=== PATIENT | female | born 1950 | race Caucasian/White ===

== ENCOUNTER 2020-02-13 14:16 | Emergency (ER) | payer MEDICARE ==
[~2020-02-13] VITALS: Ht 172.7 cm; Wt 68.0 kg
[2020-02-13 14:52] LABS: BASOPHILS ABSOLUTE AUTO 0.09 K/mm3 (0.00-0.23); BASOPHILS PERCENT AUTO 1 % (0-2); EOSINOPHILS ABSOLUTE AUTO 0.34 K/mm3 (0.00-0.68); EOSINOPHILS PERCENT AUTO 4 % (0-6); Hemoglobin 15.4 g/dL (11.5-16.0); IMMATURE GRAN ABSOLUTE AUTO 0.04 K/mm3 (0.00-0.10); IMMATURE GRAN PERCENT AUTO 0 % (0-1); LYMPHOCYTES ABSOLUTE AUTO 2.96 K/mm3 (0.84-5.20); LYMPHOCYTES PERCENT AUTO 31 % (21-46); MONOCYTES ABSOLUTE AUTO 0.52 K/mm3 (0.16-1.47); MONOCYTES PERCENT AUTO 5 % (4-13); Mean Corpuscular HGB 31.2 pg (26.0-34.0); Mean Corpuscular HGB Conc 32.8 g/dL (31.5-36.5); Mean Corpuscular Volume 95 fL (80-100); Mean Platelet Volume 10.2 fL (9.1-12.4); NEUTROPHILS ABSOLUTE AUTO 5.67 K/mm3 (1.96-9.15); NEUTROPHILS PERCENT AUTO 59 % (41-73); Platelet Count 271 K/mm3 (150-400); RDW Coefficient Variation 12.7 % (11.7-14.2); RDW Standard Deviation 45.2 fL (35.1-46.3); Red Blood Cell Count 4.93 M/mm3 (3.80-5.20); White Blood Cell Count 9.62 K/mm3 (4.00-11.30)
[2020-02-13 15:13] LABS: Alanine Aminotransfer (ALT/SGP 39 U/L (12-78); Albumin, Blood 3.7 g/dL (3.4-5.0); Albumin/Globulin Ratio 1.1 (0.8-1.8); Alk Phos 54 U/L (50-136); Anion Gap 5 mmol/L (6-16); Aspartate Aminotrans (AST/SGOT 27 U/L (12-37); Bilirubin, Total 0.4 mg/dL (0.1-1.0); Blood Urea Nitrogen 13 mg/dL (8-24); Bun/Creatinine Ratio 14.5 (12.0-20.0); CO2, Blood 25 mmol/L (21-32); Calcium, Blood 8.6 mg/dL (8.5-10.1); Chloride, Blood 110 mmol/L (98-108); Globulin, Blood 3.3 g/dL (2.2-4.0); Glomerular Filtration Rate >60 (60-); Glucose, Blood 97 mg/dL (70-99); Sodium, Blood 140 mmol/L (136-145); Troponin I <0.015 ng/mL (0.000-0.040)
[2020-02-13] MEDS ORDERED: ESTR2 PO (15:18)
[2020-02-13] MEDS ORDERED: Oxybutynin Chlo15 MG PO (15:18)
[2020-02-13] MEDS ORDERED: Bupropion Xl150 MG PO (15:20)
[2020-02-13] MEDS ORDERED: FAMO40 PO (15:20)
[2020-02-13] MEDS ORDERED: LOSARTAN POTAS100 M1 PO (15:20)
[2020-02-13] MEDS ORDERED: ACYC200 PO (15:21)
[2020-02-13] MEDS ORDERED: DULO30 PO (15:21)
[2020-02-13] MEDS ORDERED: GABA100 PO (15:21)
[2020-02-13] MEDS ORDERED: SUMA25 PO (15:22)
[2020-02-13] MEDS ORDERED: NARA2.5 (15:22)
[2020-02-13 16:29] LABS: Source, Urine Clean Catch
[2020-02-13 16:33] LABS: Bilirubin, Urine Neg (Neg); Blood, Urine 1+ (Neg); Glucose Qualitative, Urine Neg (Neg); Ketones, Urine Neg (Neg); Leukocyte Esterase, Urine 1+ (Neg); Nitrite, Urine Neg (Neg); Protein, Urine Neg (Neg); Specific Gravity, Urine 1.015 (1.003-1.022); Urobilinogen, Urine NORM (Normal)
[2020-02-13 16:47] LABS: Appearance, Urine Clear (Clear); Color, Urine Yellow (P-Yellow)
[2020-02-13 16:48] LABS: Bacteria Mod /hpf; Red Blood Cells, Urine 0-2 /hpf (0-2); Squamous Epithelial Cells Few /hpf (Few)
== END 2020-02-13 18:06 | disposition home or self-care (01) ==
LOC: ER 14:16
PROVIDERS: Physician Assistant
DX: I63.9 Cerebral infarction, unspecified (principal); R47.01 Aphasia; R47.82 Fluency disorder in conditions classified elsewhere; R07.9 Chest pain, unspecified; N39.0 Urinary tract infection, site not specified; Z53.20 Procedure and treatment not carried out because of patient's decision for unspecified reasons; I10 Essential (primary) hypertension
CPT/HCPCS: 70450; 70496; 70498; 71046; 80053; 81001; 84484; 85025; 87077; 87086; 87186; 93005; 93010; 99285-25; Q9967

== ENCOUNTER 2021-08-25 08:21 | Day surgery (SDC) | payer MEDICARE ==
[~2021-08-25] VITALS: Ht 170.2 cm; Wt 90.9 kg
[~2021-08-25 08:21] MED LIST: ACYC200 PO; Bupropion Xl150 MG PO; DULO30 PO; ESTR2 PO; FAMO40 PO; GABA100 PO; LOSARTAN POTAS100 M1 PO; NARA2.5; Oxybutynin Chlo15 MG PO; SUMA25 PO
[2021-08-25] MEDS ORDERED: ASPI81CH PO (09:26)
[2021-08-25] MEDS ORDERED: ALLEGRA ALLERG180 MG PO (09:27)
[2021-08-25] MEDS ORDERED: EFUDEX40 GM TOP (09:28)
[2021-08-25] MEDS ORDERED: METO25ER PO (09:31)
[2021-08-25] MEDS ORDERED: MELATONIN5 M1 PO (09:42)
[2021-08-25] MEDS ORDERED: Vesicare10 MG PO (09:42)
[2021-08-25] MEDS ORDERED: MULVITA PO (09:44)
== END 2021-08-25 23:17 | disposition home or self-care (01) ==
LOC: MHTC 08:21
DX: R07.89 Other chest pain (principal); I10 Essential (primary) hypertension; E66.9 Obesity, unspecified; Z86.73 Personal history of transient ischemic attack (TIA), and cerebral infarction without residual deficits; Z68.32 Body mass index [BMI] 32.0-32.9, adult; Z79.82 Long term (current) use of aspirin; Z88.8 Allergy status to other drugs, medicaments and biological substances; Z91.048 Other nonmedicinal substance allergy status
CPT/HCPCS: 93312; 93325; A9270; J7030